=== PATIENT | male | born 1970 | race Caucasian/White ===

== ENCOUNTER 2024-08-04 14:31 | Outpatient (CLI) | payer OTHER, SELFPAY ==
--- NOTE | ~2024-08-04 | MR_ITS ---
EXAMINATION: MR cervical spine wo con DATE: 08/04/2024 15:29 INDICATION: Neck pain. Cervical radiculopathy. TECHNIQUE: Magnetic resonance imaging (MRI) of the cervical spine was performed without intravenous c ontrast. COMPARISON: None FINDINGS: There is hypolordosis of cervical spine. Vertebral body heights are normal. There is mildly decreased disc height at C5-C6. The spinal cord signal intensity is normal. The following disc level s are specifically discussed: C2-C3: The disc does not extend beyond the endplate margin. There is no uncovertebral joint osteoarth ritis. There is no facet joint osteoarthritis. There is no neural foraminal stenosis. There is no evan tral canal stenosis. C3-C4: There is a central protrusion. 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 There is no facet joint osteoarthritis. There is moderate right neural foraminal stenosis. There is mild c entral canal stenosis. C4-C5: The disc is bulging. There is severe right and mild left uncovertebral joint osteoarthritis. T here is mild bilateral facet joint osteoarthritis. There is moderate right neural foraminal stenosis. There is mild central canal stenosis. C5-C6: The disc is bulging with superimposed right central extrusion. There is severe right and mild left uncovertebral joint osteoarthritis. There is mild right and moderate left facet joint osteoarthr itis. There is moderate right neural foraminal stenosis. There is mild central canal stenosis. C6-C7: There is a central protrusion. There is severe right and moderate left uncovertebral joint ost eoarthritis. There is mild right and moderate left facet joint osteoarthritis. There is moderate righ t and mild left neural foraminal stenosis. There is mild central canal stenosis. C7-T1: The disc does not extend beyond the endplate margin. There is no uncovertebral joint osteoarth ritis. There is severe right and moderate left facet joint osteoarthritis. There is mild right neural foraminal stenosis. There is no central canal stenosis. IMPRESSION: 1. Moderate cervical spondylosis. Reviewed, dictated and finalized at location A. ER CONTROLLED ATMOSPHERIC FURNACE
== END 2024-08-04 14:32 | disposition home or self-care (01) ==
LOC: GOSHIMG 14:37
DX: M43.02 Spondylolysis, cervical region (principal)
CPT/HCPCS: 72141